=== PATIENT | male | born 1970 | race Caucasian/White ===

== ENCOUNTER → 2021-05-05 15:20 | Outpatient (CLI) | payer OTHER, SELFPAY ==
[2021-05-05 17:00] LABS: Cholesterol 167 mg/dL (200); Glucose 75 mg/dL (74-106); High Density Lipoprotein 37 mg/dL; PSA,Total - Annual Screen 2.02 ng/mL (0.00-4.00); Triglycerides 139 mg/dL; Very Low Density Lipoprotein 28 mg/dL (5-40)
== END ==
PROVIDERS: Visit Provider Nurse Practitioner Adult Health
DX: Z00.01 Encounter for general adult medical examination with abnormal findings (principal); Z12.5 Encounter for screening for malignant neoplasm of prostate
CPT/HCPCS: 36415; 80061; 82947; 84153; G0103

== ENCOUNTER → 2024-03-22 | Outpatient (CLI) | payer OTHER, SELFPAY ==
[2024-03-22 12:24] LABS: Absolute Lymphocyte Count 1.47 X10^3/uL (0.83-4.51); Absolute Neutrophil Count 4.7 X10^3/uL (2.0-7.7); Basophil# 0.04 X10^3/uL; Basophil% 0.6 % (0-1); Eosinophil# 0.18 X10^3/uL; Eosinophils% 2.6 % (0-5); Hematocrit 44.3 % (40-54); Hemoglobin 14.8 g/dL (13.0-16.5); Lymphocyte # 1.47 X10^3/ul (0.83-4.51); Lymphocyte % 21.6 % (19-41); Mean Corp Hgb Conc 33.4 g/dL (32-36); Mean Corpuscular Hgb 30.5 pg (27.0-32.0); Mean Corpuscular Volume 91.3 fL (80-94); Mean Platelet Vol. 9.9 fl (6.2-12.0); Monocyte# 0.36 X10^3/uL; Monocyte% 5.3 % (0-10); NRBC Flagged by Analyzer 0 % (0-5); Neutrophil # 4.74 X10^3/uL (2.7-7.7); Neutrophil % 69.8 % (47-70); Platelet Count 233 K/mm3 (150-450); RBC Distribution Width SD 43.8 fl (35.1-43.9); Red Blood Count 4.85 M/mm3 (4.6-6.2); White Blood Count 6.8 K/mm3 (4.4-11.0)
[2024-03-22 12:45] LABS: Hemoglobin A1c 5.4 % (3.8-5.6)
[2024-03-22 12:48] LABS: ALB/GLOB Ratio 1.2 RATIO (0.9-2.4); AST(SGOT) 15 U/L (15-37); Alanine Aminotransfer ALT/SGPT 20 U/L (16-61); Alkaline Phosphatase 105 U/L (45-117); Anion Gap 7 (5-15); BUN 7 mg/dL (7-18); BUN/Creat Ratio 8.8 RATIO (10-20); Calcium,Total 9.2 mg/dL (8.5-10.1); Chloride 105 mmol/L (98-107); Cholesterol 165 mg/dL (200); Creatinine, Serum 0.79 mg/dL (0.70-1.30); EST Glomerular Filtration Rate 109 mL/min (>60); Est Glom Filt Rate - Afr Amer 131 mL/min (>60); Globulin 3.2 g/dL (2.2-4.2); Glucose 92 mg/dL (74-106); High Density Lipoprotein 44 mg/dL; Potassium 3.9 mmol/L (3.5-5.1); Protein, Total 7.2 g/dL (6.4-8.2); Sodium Level 138 mmol/L (136-145); Triglycerides 97 mg/dL; Very Low Density Lipoprotein 19 mg/dL (5-40)
[2024-03-23 13:08] LABS: PSA, Free 0.57 ng/mL
== END | disposition home or self-care (01) ==
LOC: VSLAB 11:24
PROVIDERS: PCP Family Medicine; Visit Provider Family Medicine
DX: Z13.228 Encounter for screening for other metabolic disorders (principal); Z12.5 Encounter for screening for malignant neoplasm of prostate
CPT/HCPCS: 36415; 80053; 80061; 83036; 84153; 84154; 84443; 85025

== ENCOUNTER → 2025-04-11 | Outpatient (CLI) | payer OTHER, SELFPAY ==
[2025-04-11 10:44] LABS: Hematocrit 40.9 % (40-54); Hemoglobin 13.8 g/dL (13.0-16.5); Immature Granulocytes Count 0.010 X10^3/uL (0.0-0.0); Mean Corp Hgb Conc 33.7 g/dL (32-36); Mean Corpuscular Volume 91.7 fL (80-94); Mean Platelet Vol. 10.1 fl (6.2-12.0); NRBC Flagged by Analyzer 0 % (0-5); Platelet Count 221 K/mm3 (150-450); RBC Distribution Width CV 13.1 % (11.6-14.6); RBC Distribution Width SD 44.4 fl (35.1-43.9); Red Blood Count 4.46 M/mm3 (4.6-6.2); White Blood Count 6.7 K/mm3 (4.4-11.0)
[2025-04-11 11:45] LABS: AST(SGOT) 19 U/L (<=37); Alanine Aminotransfer ALT/SGPT 17 U/L (<=46); Albumin, Serum 4.4 g/dL (3.5-5.0); Alkaline Phosphatase 87 U/L (40-129); Anion Gap 9 (5-15); BUN 11 mg/dL (4-19); BUN/Creat Ratio 15.8 RATIO (10-20); Calcium,Total 9.4 mg/dL (7.6-11.0); Carbon Dioxide 27.0 mmol/L (21.0-32.0); Chloride 104 mmol/L (98-108); Cholesterol 177 mg/dL (<=200); Globulin 2.3 g/dL (2.2-4.2); Glucose 96 mg/dL (70-99); Low Density Lipoprotein Calc. 107 mg/dL; Potassium 4.0 mmol/L (3.3-5.1); Triglycerides 86 mg/dL; Very Low Density Lipoprotein 17 mg/dL (5-40); cholesterol:hdl ratio screen 3.37
[2025-04-12 17:08] LABS: PSA, Total 3.9 ng/mL (0.0-4.0)
== END | disposition home or self-care (01) ==
PROVIDERS: PCP Family Medicine; Referring Provider Family Medicine; Visit Provider Family Medicine
DX: Z13.228 Encounter for screening for other metabolic disorders (principal); Z12.5 Encounter for screening for malignant neoplasm of prostate
CPT/HCPCS: 36415; 80053; 80061; 83036; 84153; 84443; 85025